=== PATIENT | female | born 1955 | race American Indian/Alaskan Native ===

== ENCOUNTER 2016-12-03 08:47 | Day surgery (SDC) | payer MEDICARE, MEDICAID ==
[2016-12-03] MEDS ORDERED: Lidocaine 2% Viscous Solution 15 ML Cup ONE (10:28)
[2016-12-03] MEDS ORDERED: Lidocaine 4% Top Soln 50 ML Bottle ONE (10:28)
[2016-12-03] MEDS ORDERED: fentaNYL 100 MCG/2 ML SDV ONE (10:34)
[2016-12-03] MEDS ORDERED: Lidocaine 4% Top Soln 4 ML LTA Syringe ONE (10:34)
[2016-12-03] MEDS ORDERED: Propofol 200 MG/20 ML SDV ONE ×2 (11:19)
[2016-12-03 13:32] VITALS: BP 95/58
--- NOTE | 2016-12-06 13:59 | OR ---
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 OPERATIVE PROCEDURE: Flexible bronchoscopy with tracheobronchial washings, 1. Brushings of the right upper lobe (52720). 2. Biopsies to right upper lobe bronchial mass (09092). 3. Transtracheal needle aspiration biopsies x2 ([id number]). ANESTHESIA: Topical plus IV sedation. INDICATION FOR PROCEDURE: A 61-year-old seen in walk-in clinic 2 days ago, presenting with some respiratory symptoms. Initial chest x-ray was suggestive of a large anterior mediastinal mass, and subsequent CAT scan done the same day showed a large anterior mediastinal mass with extension into the right hilum. Based on the CT findings, unclear whether or not this was a hilar mass extending into the mediastinum versus the reverse sequence. Plan at this point will be to proceed with a flexible bronchoscopy with biopsies as indicated, followed by a PET scan and Medical Oncology consult. Potential risks of the procedure including bleeding and infection were reviewed, and the patient wishes to proceed. DESCRIPTION OF PROCEDURE: The patient was taken to the operating room and placed in a supine position. IV sedation was administered, after which the nasal passages and hypopharynx were anesthetized with 1% lidocaine and a translaryngeal injection of lidocaine passed per anesthesia. The flexible bronchoscope was passed through the left side of the nose and visualized the hypopharynx, nasopharynx, and both vocal cords were unremarkable. Cord motion was symmetrical. As one passed into the trachea, there was no asymmetry of the trachea, but there was an obvious flattening of the "horseshoe" configuration of the trachea consistent with an anterior mass like compression of the distal 2/3 of the trachea as well as the nithin. There were no mucosal abnormalities however noted within the nithin or right mainstem bronchus; however, at the takeoff of the right upper lobe bronchus, there was a fleshy mass present, which was highly suggestive of neoplastic finding, and the entire right upper lobe bronchus beyond that point was somewhat edematous and narrowed. At this point, tracheobronchial washings were diffusely obtained. Initially, brushings were obtained from the right upper lobe. These included brushings of the mass seen in the right upper lobe bronchus as well as distal to that. These were sent for cytologic evaluation. Multiple biopsies were then obtained from the mass seen in the right upper lobe bronchus. Minimal bleeding from the biopsy sites was seen. At this point, transtracheal needle aspiration biopsies were obtained as the mass clearly abutted the distal aspect of the trachea. In each case, these were passed through the trachea obliquely and into what would likely be the mass and negative suction. Multiple passes in and out were placed, and each of these were then sent separately for cytologic evaluation. At that point, no further problems were noted. Despite the patient being on an antiplatelet agent, minimal bleeding was noted, and the procedure then concluded. The patient was taken to the recovery room in satisfactory condition. Plan at this point will be to set up the patient with a PET scan as well as Medical Oncology appointment for next week, with today being Tuesday. Both of these issues are being dealt with by clinic nurses presently, and hopefully, we will maintain the management of this case on a relatively fast track basis. Miguel Angel Gooden MD /[id number]
== END 2016-12-03 14:00 | disposition home or self-care (01) ==
LOC: JP.SDS 08:47
PROVIDERS: ATTEND Surgery
DX: C38.1 Malignant neoplasm of anterior mediastinum (principal); J44.9 Chronic obstructive pulmonary disease, unspecified; K21.9 Gastro-esophageal reflux disease without esophagitis
CPT/HCPCS: 31623; 31625; 31629; 87015; 87070; 87077; 87102; 87116; 87186; 87205; 87206; 87220; A9270; J2704; J3010; 88112; 88305; 88342

== ENCOUNTER 2016-12-16 08:10 | Day surgery (SDC) | payer MEDICARE, MEDICAID ==
[~2016-12-16 08:10] MED LIST: Bupivacaine 0.5% 50 ML MDV ONE; Lidocaine 1% with EPINEPHrine 1:100,000 50 ML MDV ONE
[2016-12-16] MEDS ORDERED: Midazolam 1 MG/ML 2 ML SDV ONE (09:40)
[2016-12-16] MEDS ORDERED: fentaNYL 100 MCG/2 ML SDV ONE (09:40)
[2016-12-16] MEDS ORDERED: Dextrose 5%-Lactated Ringers 1,000 ML IV SCH (09:40)
[2016-12-16] MEDS ORDERED: Propofol 200 MG/20 ML SDV ONE (09:40)
[2016-12-16] MEDS ORDERED: ceFAZolin 2 GM in Sodium Chloride 0.9% 50 ML IV ONE (10:00)
[2016-12-16 12:59] VITALS: BP 135/90
--- NOTE | 2016-12-20 14:07 | OR ---
DATE OF PROCEDURE: 12/16/2016 PREOPERATIVE DIAGNOSIS: Indications for central venous access. POSTOPERATIVE DIAGNOSIS: Indications for central venous access. PROCEDURE: Placement of Bard power port ([id number]). ANESTHESIA: Local plus IV sedation. INDICATIONS FOR PROCEDURE: This is a 61-year-old recently diagnosed with a local and regionally enhanced carcinoma of the lung. She is to undergoing chemotherapy and a central venous access requested per Medical Oncology. The plan is to proceed with a Bard power port. Potential risks of the procedure including bleeding, infection, pneumohemothorax and such were reviewed, and the patient wishes to proceed. DETAILS OF PROCEDURE: The patient was taken to the operating room, placed in a supine position. IV sedation was administered after which the chest and neck areas were prepped and draped. The left subclavian area was anesthetized with some 1% lidocaine mixed with Marcaine. The left subclavian vein was cannulated, guidewire passed and manipulated into the superior vena cava. Some additional local was then injected and a transverse infraclavicular incision was made and carried down through the skin, subcutaneous tissue, and through the pectoralis major fascia. A pocket was then bluntly constructed in that level. The Bard power port was then placed into the pocket and the catheter cut such that the tip would lie in the superior vena cava atrial junction over the introducer peel-away catheter. The guidewire per catheter was placed and superior to the enter into the upper right atrium, which would be an optimal position. At this point, the incision was then closed with some 3-0 Vicryl stitch deep along with a 4- 0 Vicryl subcuticular stitch. The port was then aspirated and then reinjected with heparin. Bleeding and outflow were noted and Steri-Strips applied. The patient was taken to the recovery room in satisfactory condition. Miguel Angel Gooden MD /[id number]
== END 2016-12-16 13:00 | disposition home or self-care (01) ==
LOC: JP.SDS 08:10
PROVIDERS: ATTEND Surgery
DX: Z45.2 Encounter for adjustment and management of vascular access device (principal); C34.91 Malignant neoplasm of unspecified part of right bronchus or lung; R51 Headache; H53.8 Other visual disturbances; I67.82 Cerebral ischemia
CPT/HCPCS: 36561; 70553; A9576; C1788; J0690; J1642; J2250; J2704; J3010; J7042; J7050

== ENCOUNTER 2016-12-23 15:29 | Emergency (ER) | payer MEDICARE, MEDICAID ==
[2016-12-23] MEDS ORDERED: Sodium Chloride 0.9% 10 ML Syringe FLUSH PRN (16:52)
[2016-12-23] MEDS ORDERED: Ondansetron 4 MG/2 ML SDV IVPUSH ONE (16:53)
--- NOTE | 2016-12-23 16:56 | EDM.PDOC ---
<Jose Clarke - Last Filed: 12/23/16 18:27> ED HPI GENERAL MEDICAL PROBLEM - General Chief Complaint: General Stated Complaint: NAUSEA,HEADACHE,ABD PAIN,WEAK Time Seen by Provider: 12/23/16 16:38 Source of Information: Reports: Patient, Provider History Limitations: Reports: No limitations - History of Present Illness INITIAL COMMENTS - FREE TEXT/NARRATIVE: this lady has been diagnosed with lung cancer. She had a PET scan on December 08 that showed some metastases to the adrenal glands. She started chemotherapy 2 days ago and since then she has felt very nauseated she's not eating or drinking much she feels like she might be dehydrated. She has not vomited or had any diarrhea but she's very nauseated nauseated all the time. She denies any fever but she feels cold all the time. There are no urinary symptoms except her usual incontinence. She denies any chest pain or shortness of breath. She does have some headache to the back of her neck and sort of radiates over the top of her head. Dr. Cox called me from the clinic before sending her to the ER. - Related Data Allergies Allergy/AdvReac Type Severity Reaction Status Date / Time No Known Allergies Allergy Verified 12/16/16 09:45 Home Meds: Home Meds Albuterol Sulfate [Proair Hfa] 2 puff IH Q4HR PRN 05/17/13 [History] Hydrocodone/Acetaminophen [Hydrocodon-Acetaminophn 10-325] 1 tab PO Q6H PRN 01/22 [History] Oxybutynin Chloride [Ditropan Xl] 5 mg PO BID 05/17/13 [History] Pantoprazole Sodium 1 tab PO BID 09/24/16 [History] Aspirin [Ecotrin] 81 mg PO DAILY 12/03/16 [History] Cilostazol 100 mg PO BID 12/03/16 [History] Ondansetron HCl [Zofran] 4 mg PO Q4H PRN 12/15/16 [History] Tiotropium [Spiriva Handihaler] 1 inhaler IH DAILY 12/15/16 [History] Past Medical History HEENT History: Reports: Cataract Cardiovascular History: Reports: Blood clots/VTE/DVT, Other (see below) Other Cardiovascular History: stent left leg Respiratory History: Reports: COPD, Other (see below) Other Respiratory History: lung ca Gastrointestinal History: Reports: GERD Genitourinary History: Reports: Urinary incontinence 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: Musculoskeletal History: Reports: Arthritis Neurological History: Reports: Headaches, chronic Psychiatric History: Reports: Anxiety Oncologic (Cancer) History: Reports: Lung Dermatologic History: Reports: Eczema - Infectious Disease History Infectious Disease History: Reports: Chicken pox, Measles - Past Surgical History HEENT Surgical History: Reports: Tonsillectomy GI Surgical History: Reports: Cholecystectomy Female Surgical History: Reports: None Social & Family History - Family History Family Medical History: Noncontributory - Tobacco Use Smoking Status *Q: Never Smoker Years of Tobacco use: 40 Packs/Tins Daily: 1 Used Tobacco, but Quit: Yes Month Tobacco Last Used: november Second Hand Smoke Exposure: Yes - Caffeine Use Caffeine Use: Reports: Coffee, Soda, Tea - Alcohol Use Days Per Week of Alcohol Use: 1 Number of Drinks Per Day: 0 Total Drinks Per Week: 0 - Recreational Drug Use Recreational Drug Use: No ED ROS GENERAL - Review of Systems Review Of Systems: See Below Constitutional: Reports: chills, weakness, fatigue, decreased appetite HEENT: Reports: No symptoms Respiratory: Reports: No Symptoms Cardiovascular: Reports: No symptoms Endocrine: Reports: fatigue GI/Abdominal: Reports: Constipation : Reports: no symptoms Musculoskeletal: Reports: no symptoms Skin: Reports: no symptoms Neurological: Reports: No Symptoms Psychiatric: Reports: No symptoms Hematologic/Lymphatic: Reports: no symptoms Immunologic: Reports: no symptoms (for) ED EXAM, GENERAL - Physical Exam Exam: See Below Exam Limited By: No limitations General Appearance: alert, mild distress, other (chronically ill appearing) Eye Exam: bilateral eye: EOMI, PERRL Ears: normal external exam, normal TMs Nose: normal inspection Throat/Mouth: Normal oropharynx, Other (mouth and tongue are very dry) Head: atraumatic Neck: supple Respiratory/Chest: lungs clear, normal breath sounds Cardiovascular: regular rate, rhythm, no murmur GI/Abdominal: soft, non tender Extremities: normal inspection Neurological: alert, oriented, CN II-XII intact, normal cognition, no motor/ sensory deficits Psychiatric: normal affect Skin Exam: Warm, Dry Course - Vital Signs Last Recorded V/S: Last Vital Signs Temp 37.8 C 12/23/16 19:17 Pulse 111 H 12/23/16 19:17 Resp 20 12/23/16 19:17 BP 111/46 L 12/23/16 19:17 Pulse Ox 95 12/23/16 19:17 - Orders/Labs/Meds Orders: Active Orders 24 hr Category Date Time Status Chest 2V [CR] Urgent Exams 12/23/16 16:48 Taken Sodium Chloride 0.9% [Normal Saline] 1,000 ml Med 12/23/16 17:00 Active IV ASDIRECTED Sodium Chloride 0.9% [Saline Flush] Med 12/23/16 16:52 Active 10 ml FLUSH ASDIRECTED PRN Saline Lock Insert [OM.PC] Urgent Oth 12/23/16 16:52 Ordered Medication Orders Sodium Chloride (Normal Saline) 1,000 mls @ 999 mls/hr IV ASDIRECTED JAQUAN Last Admin: 12/23/16 18:53 Dose: 999 mls/hr Infusion: 12/23/16 18:14 Dose: 999 mls/hr Admin: 12/23/16 17:13 Dose: 999 mls/hr Sodium Chloride (Saline Flush) 10 ml FLUSH ASDIRECTED PRN PRN Reason: Keep Vein Open Last Admin: 12/23/16 17:12 Dose: 10 ml Labs: Laboratory Tests 12/23/16 12/23/16 12/23/16 Range/Units 16:48 16:48 19:13 WBC 11.9 H (4.5-11.0) K/uL RBC 3.21 L (3.30-5.50) M/uL Hgb 8.5 L D (12.0-15.0) g/dL Hct 27.6 L (36.0-48.0) % MCV 86 (80-98) fL MCH 27 (27-31) pg MCHC 31 L (32-36) % Plt Count 348 (150-400) K/uL Neut % (Auto) 76 H (36-66) % Lymph % (Auto) 22 L (24-44) % [place] % (Auto) 1 L (2-6) % Eos % (Auto) 1 L (2-4) % Baso % (Auto) 0 (0-1) % Sodium 141 (140-148) mmol/L Potassium 3.6 (3.6-5.2) mmol/L Chloride 105 (100-108) mmol/L Carbon Dioxide 26 (21-32) mmol/L Anion Gap 10.2 (5.0-14.0) mmol/L BUN 11 (7-18) mg/dL Creatinine 0.6 (0.6-1.0) mg/dL Est Cr Clr Drug Dosing 78.97 mL/min Estimated GFR (MDRD) > 60 (>60) Glucose 97 (74-106) mg/dL Calcium 7.6 L (8.5-10.1) mg/dL Total Bilirubin 0.8 D (0.2-1.0) mg/dL AST 47 H D (15-37) U/L ALT 50 D (12-78) U/L Alkaline Phosphatase 173 H (46-116) U/L Total Protein 6.7 (6.4-8.2) g/dL Albumin 2.1 L (3.4-5.0) g/dL Globulin 4.6 H (2.3-3.5) g/dL Albumin/Globulin Ratio 0.5 L (1.2-2.2) Urine Color Yellow Urine Appearance Clear Urine pH 7.0 (4.5-8.0) Ur Specific [place] 1.010 (1.008-1.030) Urine Protein Negative (NEGATIVE) mg/dL Urine Glucose (UA) Normal (NEGATIVE) mg/dL Urine Ketones Negative (NEGATIVE) mg/dL Urine Occult Blood Negative (NEGATIVE) Urine Nitrite Negative (NEGATIVE) Urine Bilirubin Negative (NEGATIVE) Urine Urobilinogen 4 (NORMAL) mg/dL Ur Leukocyte Esterase Negative (NEGATIVE) Urine RBC 0-5 (0-5) Urine WBC 0-5 (0-5) Ur Epithelial Cells Few Amorphous Sediment Not seen Urine Bacteria Not seen Urine Mucus Not seen Meds: Medications Generic Name Dose Route Start Last Admin Trade Name Freq PRN Reason Stop Dose Admin Sodium Chloride 1,000 mls @ 999 mls/hr 12/23/16 17:00 12/23/16 18:53 Normal Saline IV 999 mls/hr ASDIRECTED JAQUAN Administration Sodium Chloride 10 ml 12/23/16 16:52 12/23/16 17:12 Saline Flush FLUSH 10 ml ASDIRECTED PRN Administration Keep Vein Open Discontinued Medications Generic Name Dose Route Start Last Admin Trade Name Freq PRN Reason Stop Dose Admin Ondansetron HCl 4 mg 12/23/16 16:53 12/23/16 17:12 Zofran IVPUSH 12/23/16 16:54 4 mg ONETIME ONE Administration Sodium Biphosphate/Sodium Phosphate 133 ml 12/23/16 18:49 12/23/16 19:16 Fleet Enema RECTAL 12/23/16 18:50 133 ml ONETIME ONE Administration - Radiology Interpretation Free Text/Narrative:: the anterior mediastinal mass but there's no evidence of a pneumonia. No significant change from previous chest x-ray - Re-Assessments/Exams Free Text/Narrative Re-Assessment/Exam: 12/23/16 18:27 the patient received 1 L of IV normal saline. She was then rechecked and no substantial increase in her blood pressures. I examined her extremities and the veins in her hands and arms are completely flat so we'll give her another liter. Also her giving her something to eat. He'll be turning her over to Dr. Mondragon shortly Departure - Departure Disposition: Home, Self-Care 01 Clinical Impression: Dehydration Lung cancer Qualifiers: Laterality: unspecified laterality Lung location: unspecified part of lung Qualified Code(s): C34.90 - Malignant neoplasm of unspecified part of unspecified bronchus or lung Constipation Qualifiers: Constipation type: unspecified constipation type Qualified Code(s): K59.00 - Constipation, unspecified Forms: ED Department Discharge Additional Instructions: Please return to the emergency room if he developed fevers and chills or weakness or feel you are dehydrated. <Maurizio Perez - Last Filed: 12/23/16 19:52> Course - Vital Signs Text/Narrative:: She has finished the second liter of fluids and we did give her a fleets enema with moderate results and she felt better after this. She is doing well and wants to go home. She is stable. Departure - Departure Time of Disposition: 19:51 Condition: good
[2016-12-23] MEDS: Sodium Chloride 0.9% 1,000 ML IV SCH ×2 (17:13→18:53)
[2016-12-23] MEDS ORDERED: Sodium Phosphate,Monobasic/Sodium Phosphate,Dibasic Enema 133 ML Bottle RECTAL ONE (18:49)
[2016-12-23 19:19] VITALS: BP 111/46
--- NOTE | 2016-12-24 09:17 | CR ---
Chest 2V INDICATION: pain FINDINGS: Comparison 12/01/2016. New left Port-A-Cath with tip at the confluence of the brachiocephal ic veins. Mild enlargement of a right suprahilar mass measuring approximately 11.7 cm. New small rig ht pleural effusion. Stable blunting of the left costophrenic angle.
== END 2016-12-23 20:12 | disposition home or self-care (01) ==
LOC: JP.ED 15:29
DX: E86.0 Dehydration (principal); C34.90 Malignant neoplasm of unspecified part of unspecified bronchus or lung; K59.00 Constipation, unspecified; K21.9 Gastro-esophageal reflux disease without esophagitis; F41.9 Anxiety disorder, unspecified; J44.9 Chronic obstructive pulmonary disease, unspecified; Z86.718 Personal history of other venous thrombosis and embolism; Z79.82 Long term (current) use of aspirin; Z79.899 Other long term (current) drug therapy; Z90.49 Acquired absence of other specified parts of digestive tract; Z98.890 Other specified postprocedural states; Z45.2 Encounter for adjustment and management of vascular access device
CPT/HCPCS: 36415; 71020; 80053; 81001; 85025; 96361; 96374; 99202; 99284; A9270; J1642; J2405; J7040; J7050

== ENCOUNTER 2017-01-17 12:26 | Emergency (ER) | payer MEDICARE, MEDICAID ==
[2017-01-17 13:00] VITALS: BP 113/70
--- NOTE | 2017-01-17 13:24 | EDM.PDOC ---
[id number] Pain Score (Numeric/FACES): 4 - Related Data Allergies Allergy/AdvReac Type Severity Reaction Status Date / Time No Known Allergies Allergy Verified 01/17/17 12:49 Home Meds: Home Meds Albuterol Sulfate [Proair Hfa] 2 puff IH Q4HR PRN 05/17/13 [History] Hydrocodone/Acetaminophen [Hydrocodon-Acetaminophn 10-325] 1 tab PO Q6H PRN 01/22 [History] Oxybutynin Chloride [Ditropan Xl] 15 mg PO BID 05/17/13 [History] Pantoprazole Sodium 1 tab PO BID 09/24/16 [History] Aspirin [Ecotrin] 81 mg PO DAILY 12/03/16 [History] Cilostazol 100 mg PO BID 12/03/16 [History] Ondansetron HCl [Zofran] 4 mg PO Q4H PRN 12/15/16 [History] Past Medical History HEENT History: Reports: Cataract Cardiovascular History: Reports: Blood clots/VTE/DVT, Other (see below) Other Cardiovascular History: stent left leg Respiratory History: Reports: COPD, Other (see below) Other Respiratory History: lung ca Gastrointestinal History: Reports: GERD Genitourinary History: Reports: Urinary incontinence 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: Musculoskeletal History: Reports: Arthritis Neurological History: Reports: Headaches, chronic Psychiatric History: Reports: Anxiety Oncologic (Cancer) History: Reports: Lung Dermatologic History: Reports: Eczema - Infectious Disease History Infectious Disease History: Reports: Chicken pox - Past Surgical History HEENT Surgical History: Reports: Tonsillectomy GI Surgical History: Reports: Cholecystectomy Female Surgical History: Reports: None Social & Family History - Family History Family Medical History: Noncontributory - Tobacco Use Smoking Status *Q: Former Smoker Years of Tobacco use: 40 Packs/Tins Daily: 1 Used Tobacco, but Quit: Yes Month Tobacco Last Used: November Second Hand Smoke Exposure: No - Caffeine Use Caffeine Use: Reports: Coffee, Soda, Tea - Alcohol Use Days Per Week of Alcohol Use: 1 Number of Drinks Per Day: 0 Total Drinks Per Week: 0 - Recreational Drug Use Recreational Drug Use: No ED ROS GENERAL - Review of Systems Review Of Systems: See Below Constitutional: Reports: malaise, weakness. Denies: fever Respiratory: Reports: Shortness of Breath, Cough ED EXAM, GENERAL - Physical Exam Exam: See Below Exam Limited By: No limitations General Appearance: alert, no apparent distress Respiratory/Chest: no respiratory distress, lungs clear Cardiovascular: regular rate, rhythm GI/Abdominal: Soft, Non-Tender Extremities: No: pedal edema Neurological: alert, oriented, no motor/sensory deficits, other (Diffuse weakness) Psychiatric: depressed mood Course - Vital Signs Last Recorded V/S: Last Vital Signs Temp 97.3 F 01/17/17 13:02 Pulse 121 H 01/17/17 13:02 Resp 16 01/17/17 13:02 BP 113/70 01/17/17 13:02 Pulse Ox 98 01/17/17 13:02 - Orders/Labs/Meds Labs: Laboratory Tests 01/17/17 01/17/17 Range/Units 13:54 13:54 WBC 18.8 H (4.5-11.0) K/uL RBC 3.08 L (3.30-5.50) M/uL Hgb 8.5 L (12.0-15.0) g/dL Hct 27.0 L (36.0-48.0) % MCV 88 (80-98) fL MCH 28 (27-31) pg MCHC 32 (32-36) % Plt Count 243 (150-400) K/uL Neut % (Auto) 77 H (36-66) % Lymph % (Auto) 16 L (24-44) % [place] % (Auto) 7 H (2-6) % Eos % (Auto) 0 L (2-4) % Baso % (Auto) 0 (0-1) % Sodium 133 L (140-148) mmol/L Potassium 4.0 (3.6-5.2) mmol/L Chloride 99 L (100-108) mmol/L Carbon Dioxide 27 (21-32) mmol/L Anion Gap 11.0 (5.0-14.0) mmol/L BUN 8 (7-18) mg/dL Creatinine 0.7 (0.6-1.0) mg/dL Est Cr Clr Drug Dosing 65.55 mL/min Estimated GFR (MDRD) > 60 (>60) Glucose 100 (74-106) mg/dL Calcium 7.3 L (8.5-10.1) mg/dL Magnesium 1.7 L (1.8-2.4) mg/dL Total Bilirubin 0.7 (0.2-1.0) mg/dL AST 27 (15-37) U/L ALT 25 (12-78) U/L Alkaline Phosphatase 168 H (46-116) U/L Total Protein 6.9 (6.4-8.2) g/dL Albumin 1.9 L (3.4-5.0) g/dL Globulin 5.0 H (2.3-3.5) g/dL Albumin/Globulin Ratio 0.4 L (1.2-2.2) - Re-Assessments/Exams Free Text/Narrative Re-Assessment/Exam: 01/17/17 14:55 chest x-ray was obtained and shows a worsening tumor burden in the right perihilar area. Hemoglobin was stable at 8.5, white count was 18,800. Potassium was normal at 4.0, and using was 1.7. I discussed her case with the hospitalist service here at [facility], and at [facility] in [place] and they agreed to accept her onto the oncology service at [facility] Departure - Departure Time of Disposition: 15:19 Disposition: DC/Tfer to Other Clinical Impression: Weakness Lung cancer Qualifiers: Laterality: right Lung location: hilum of lung Qualified Code(s): C34.01 - Malignant neoplasm of right main bronchus - Discharge Information Referrals: Angela Reese MD [Primary Care Provider] - Forms: ED Department Discharge Care Plan Goals: Go to [facility] this afternoon as soon as you're able, for direct admission. ED HISTORY OF PRESENT ILLNESS - General Chief Complaint: Respiratory Problem Stated Complaint: LEFT ARM PAINFUL SHORTNESS OF BREAT Time Seen by Provider: 01/17/17 13:05 Source: Reports: Patient, Family History Limitations: Reports: No limitations - History of Present Illness INITIAL COMMENTS - FREE TEXT/NARRATIVE: 61-year-old female with known lung cancer who had to miss her last chemotherapy because of low potassium and low magnesium presents with increasing shortness of breath over the past 2 days and left arm swelling. No fevers or chills. Her O2 levels are fluctuating from the mid 80s to 99. She has very little activity tolerance. Timing/Duration: Reports: Getting worse Severity: moderate Associated Symptoms: Reports: cough, malaise, shortness of breath, weakness. Denies: fever/chills - Related Data Allergies/ADRs: Allergies Allergy/AdvReac Type Severity Reaction Status Date / Time No Known Allergies Allergy Verified 01/17/17 12:49 Home Meds: Home Meds Albuterol Sulfate [Proair Hfa] 2 puff IH Q4HR PRN 05/17/13 [History] Hydrocodone/Acetaminophen [Hydrocodon-Acetaminophn 10-325] 1 tab PO Q6H PRN 01/22 [History] Oxybutynin Chloride [Ditropan Xl] 15 mg PO BID 05/17/13 [History] Pantoprazole Sodium 1 tab PO BID 09/24/16 [History] Aspirin [Ecotrin] 81 mg PO DAILY 12/03/16 [History] Cilostazol 100 mg PO BID 12/03/16 [History] Ondansetron HCl [Zofran] 4 mg PO Q4H PRN 12/15/16 [History] Departure - Departure Time of Disposition: 15:19 Disposition: DC/Tfer to Other 70 Condition: fair Clinical Impression: Weakness Lung cancer Qualifiers: Laterality: right Lung location: hilum of lung Qualified Code(s): C34.01 - Malignant neoplasm of right main bronchus Referrals: Angela Reese MD [Primary Care Provider] - Forms: ED Department Discharge Care Plan Goals: Go to [facility] this afternoon as soon as you're able, for direct admission.
--- NOTE | 2017-01-17 13:46 | CR ---
Two-view chest Comparison: 23 December 2016. Findings: There is widening of the mediastinum. The patient has a known large mediastinal mass. Ther e are no infiltrates or effusions. The heart and vascular structures are stable. There is a left Inf use-a-Port catheter in place which is unchanged. Impression: 1. No interval change of large mediastinal mass. 2. No acute infiltrates.
== END 2017-01-17 15:19 | disposition other institution (70) ==
LOC: JP.ED 12:26
DX: R53.1 Weakness (principal); C34.01 Malignant neoplasm of right main bronchus; J44.9 Chronic obstructive pulmonary disease, unspecified; K21.9 Gastro-esophageal reflux disease without esophagitis; F41.9 Anxiety disorder, unspecified; Z86.718 Personal history of other venous thrombosis and embolism; Z79.82 Long term (current) use of aspirin; Z79.899 Other long term (current) drug therapy; Z90.49 Acquired absence of other specified parts of digestive tract; Z98.890 Other specified postprocedural states; Z87.891 Personal history of nicotine dependence
CPT/HCPCS: 36415; 71020; 71020-26; 80053; 83735; 85025; 99284; 99285

== ENCOUNTER 2017-02-12 11:27 | Emergency (ER) | payer MEDICARE, MEDICAID ==
[2017-02-12] MEDS ORDERED: Sodium Chloride 0.9% 1,000 ML IV ONE (12:21)
[2017-02-12] MEDS ORDERED: Ondansetron 4 MG/2 ML SDV IVPUSH ONE (12:21)
--- NOTE | 2017-02-12 12:27 | EDM.PDOC ---
ED HPI GENERAL MEDICAL PROBLEM - General Chief Complaint: General Stated Complaint: CANCER PATIENT VERY ILL Time Seen by Provider: 02/12/17 12:10 Source of Information: Reports: Patient, Family History Limitations: Reports: No Limitations - History of Present Illness INITIAL COMMENTS - FREE TEXT/NARRATIVE: Patient presents to ER today with complaints of weakness, dehydration, nausea and pain to her neck for the past 24 to 48 hours. Hermelinda is currently suffering from terminal lung cancer and would only like fluids and medication for nausea. She declines lab work up at this time. - Related Data Allergies Allergy/AdvReac Type Severity Reaction Status Date / Time No Known Allergies Allergy Verified 01/17/17 12:49 Home Meds: Home Meds Albuterol Sulfate [Proair Hfa] 2 puff IH Q4HR PRN 05/17/13 [History] Hydrocodone/Acetaminophen [Hydrocodon-Acetaminophn 10-325] 1 tab PO Q6H PRN 01/22 [History] Oxybutynin Chloride [Ditropan Xl] 15 mg PO BID 05/17/13 [History] Aspirin [Ecotrin] 81 mg PO DAILY 12/03/16 [History] Ondansetron HCl [Zofran] 4 mg PO Q4H PRN 12/15/16 [History] LORazepam 1 tab PO BID 02/12/17 [History] Past Medical History HEENT History: Reports: Cataract Cardiovascular History: Reports: Arrhythmia, Blood Clots/VTE/DVT Other Cardiovascular History: stent left leg Respiratory History: Reports: COPD Other Respiratory History: lung ca Gastrointestinal History: Reports: GERD Genitourinary History: Reports: Urinary Incontinence [employer] History: Reports: Musculoskeletal History: Reports: Arthritis Neurological History: Reports: Headaches, Chronic Psychiatric History: Reports: Anxiety Immunologic History: Reports: Immunosuppression Oncologic (Cancer) History: Reports: Lung Dermatologic History: Reports: Eczema - Infectious Disease History Infectious Disease History: Reports: Chicken Pox - Past Surgical History HEENT Surgical History: Reports: Tonsillectomy GI Surgical History: Reports: Cholecystectomy Social & Family History - Family History Family Medical History: Noncontributory - Tobacco Use Smoking Status *Q: Former Smoker Years of Tobacco use: 40 Packs/Tins Daily: 1 Used Tobacco, but Quit: Yes Month Tobacco Last Used: august Second Hand Smoke Exposure: No - Caffeine Use Caffeine Use: Reports: Coffee - Alcohol Use Days Per Week of Alcohol Use: 1 Number of Drinks Per Day: 0 Total Drinks Per Week: 0 - Recreational Drug Use Recreational Drug Use: No ED ROS GENERAL - Review of Systems Review Of Systems: See Below Constitutional: Reports: Chills, Malaise, Weakness, Fatigue, Other (Terminal lung cancer). Denies: Fever HEENT: Denies: Dental Pain, Ear Discharge, Ear Pain, Eye Discharge, Eye Pain, Sinus Problem, Throat Pain, Throat Swelling, Vision Change Respiratory: Reports: Cough, Sputum. Denies: Shortness of Breath, Wheezing, Hemoptysis Cardiovascular: Reports: Dyspnea on Exertion. Denies: Chest Pain, Edema, Lightheadedness, Palpitations, PND, Syncope Endocrine: Reports: Fatigue. Denies: Polyuria GI/Abdominal: Reports: Anorexia, Constipation, Decreased Appetite, Nausea. Denies: Abdominal Pain, Black Stool, Bloody Stool, Diarrhea, Distension, Hematemesis, Hematochezia, Stool Incontinence, Vomiting : Denies: Dysuria, Flank Pain, Frequency, Incontinence, Pain, Urgency, Urinary Retention Musculoskeletal: Reports: Neck Pain, Muscle Pain, Other (Overall malaise and pain. ) Neurological: Denies: Confusion, Dizziness, Headache, Numbness, Paresthesia Psychiatric: Reports: Mood Lability, Other (Concerned about family and terminal illness. ). Denies: Homicidal Ideation, Suicidal Ideation Hematologic/Lymphatic: Reports: No Symptoms Immunologic: Reports: No Symptoms ED EXAM, GENERAL - Physical Exam Exam: See Below Exam Limited By: No Limitations General Appearance: Alert, WD/WN, Mild Distress Eye Exam: Bilateral Eye: Normal Inspection, PERRL Ears: Normal External Exam, Normal Canal, Hearing Grossly Normal, Normal TMs Ear Exam: Bilateral Ear: Auricle Normal, Canal Normal, TM normal Throat/Mouth: Normal Inspection, Normal Lips, Normal Teeth, Normal Gums, Normal Oropharynx, Normal Voice, No Airway Compromise Head: Atraumatic, Normocephalic Neck: Normal Inspection, Supple, Limited Range of Motion, Tender Lateral, Tender Midline. No: Lymphadenopathy (R), Lymphadenopathy (L), Thyromegaly Respiratory/Chest: No Respiratory Distress, No Accessory Muscle Use, Chest Non- Tender, Decreased Breath Sounds. No: Respiratory Distress, Crackles, Rales, Rhonchi, Wheezing, Retractions Cardiovascular: Normal Peripheral Pulses, Regular Rate, Rhythm, No Edema, No Gallop, No Murmur, No Rub GI/Abdominal: Normal Bowel Sounds, Soft, Non-Tender, No Organomegaly, No Distention, No Mass Extremities: Normal Inspection, Non-Tender, No Pedal Edema, Normal Capillary Refill, Limited Range of Motion, Other (No pain with palpation, however she has pain with moving and change in position. ) Neurological: Alert, Oriented, CN II-XII Intact, Normal Cognition, Normal Gait, No Motor/Sensory Deficits Psychiatric: Normal Affect, Tearful, Other (Sad, upset with illness. ) Skin Exam: Warm, Dry, Intact, No Rash, Other (Pale in face) Lymphatic: No Adenopathy Course - Vital Signs Last Recorded V/S: Last Vital Signs Temp 37.3 C 02/12/17 15:07 Pulse 107 H 02/12/17 15:07 Resp 16 02/12/17 15:07 BP 97/56 L 02/12/17 15:07 Pulse Ox 97 02/12/17 15:07 - Orders/Labs/Meds Orders: Active Orders 24 hr Category Date Time Status Sodium Chloride 0.9% [Normal Saline] 1,000 ml Med 02/12/17 13:15 Active IV ASDIRECTED Medication Orders Sodium Chloride (Normal Saline) 1,000 mls @ 500 mls/hr IV ASDIRECTED JAQUAN Last Admin: 02/12/17 13:18 Dose: 500 mls/hr Meds: Medications Generic Name Dose Route Start Last Admin Trade Name Freq PRN Reason Stop Dose Admin Sodium Chloride 1,000 mls @ 500 mls/hr 02/12/17 13:15 02/12/17 13:18 Normal Saline IV 500 mls/hr ASDIRECTED JAQUAN Administration Discontinued Medications Generic Name Dose Route Start Last Admin Trade Name Freq PRN Reason Stop Dose Admin Hydromorphone HCl 0.5 mg 02/12/17 13:17 02/12/17 13:26 Dilaudid IVPUSH 02/12/17 13:18 0.5 mg ONETIME ONE Administration Sodium Chloride 1,000 mls @ 1,000 mls/hr 02/12/17 12:21 02/12/17 12:26 Normal Saline IV 02/12/17 13:20 1,000 mls/hr .BOLUS ONE Administration Ondansetron HCl 4 mg 02/12/17 12:21 02/12/17 12:26 Zofran IVPUSH 02/12/17 12:22 4 mg ONETIME ONE Administration - Re-Assessments/Exams Free Text/Narrative Re-Assessment/Exam: 02/12/17 13:01 Patient resting in darkened room, at bedside. Patient reports she feels a little better, states nausea has improved. She declines medication for pain at this time. Free Text/Narrative Re-Assessment/Exam: 02/12/17 15:17 Patient reports she feels much better and would like to go home. Departure - Departure Time of Disposition: 15:17 Disposition: Home, Self-Care 01 Condition: fair Clinical Impression: Dehydration due to radiation, Weakness Lung cancer Qualifiers: Laterality: right Lung location: hilum of lung Qualified Code(s): C34.01 - Malignant neoplasm of right main bronchus - Discharge Information Referrals: Angela Reese MD [Primary Care Provider] - Forms: ED Department Discharge Additional Instructions: Work on keeping yourself hydrated. Use your zofran (ondansetron) for nausea as directed. Work on eating small meals and snacks or shakes to help with nausea and strength. Take your other medications as instructed per your primary care provider. Return to the ER or your clinic of choice for worsening, fever, chills, change in level of consciousness or other concerns. - Problem List Review Problem List Initiated/Reviewed/Updated: Yes - My Orders Last 24 Hours: My Active Orders 02/12/17 13:15 Sodium Chloride 0.9% [Normal Saline] 1,000 ml IV ASDIRECTED - Assessment/Plan Last 24 Hours: My Active Orders 02/12/17 13:15 Sodium Chloride 0.9% [Normal Saline] 1,000 ml IV ASDIRECTED Assessment:: Patient suffering dehydration today after days of decrease PO intake. She is currently receiving treatment for lung cancer and was recently given a terminal diagnosis. Review of oral intake, education on hydration completed. She was given zofran IV, IV fluids and reports feeling much better. She is discharged home with her family and will follow up with her primary provider this week.
[2017-02-12] MEDS ORDERED: Sodium Chloride 0.9% 1,000 ML IV SCH (13:15)
[2017-02-12] MEDS ORDERED: HYDROmorphone 0.5 MG/0.5 ML Syringe IVPUSH ONE (13:17)
[2017-02-12 15:08] VITALS: BP 97/56
== END 2017-02-12 15:47 | disposition home or self-care (01) ==
LOC: JP.ED 11:27
DX: E86.0 Dehydration (principal); R53.1 Weakness; C34.01 Malignant neoplasm of right main bronchus; J44.9 Chronic obstructive pulmonary disease, unspecified; K21.9 Gastro-esophageal reflux disease without esophagitis; F41.9 Anxiety disorder, unspecified; Z86.718 Personal history of other venous thrombosis and embolism; Z90.49 Acquired absence of other specified parts of digestive tract; Z87.891 Personal history of nicotine dependence; Z79.82 Long term (current) use of aspirin; Z79.899 Other long term (current) drug therapy; Z98.890 Other specified postprocedural states
CPT/HCPCS: 96361; 96374; 96375; 99285; J1170; J1642; J2405; J7040; 99284